=== PATIENT | male | born 1960 | race African-American/Black ===

== ENCOUNTER 2021-05-07 10:22 | Inpatient (IN) ==
[2021-05-07] MEDS ORDERED: DILTIAZEM 50 MG/10 ML VIAL IV STA (10:41)
[2021-05-07] MEDS: DILTIAZEM INJ 100 MG in SODIUM CHLORIDE 0.9% 100 ML IV SCH ×2 (11:15→21:05)
[2021-05-07 11:17] LABS: Basophils % 0.5 % (0.0-0.8); Eosinophils # 0.1 10*3/uL (0.0-0.87); Eosinophils % 1.2 % (0.00-10.9); Hematocrit 45.5 VOL% (42.0-52.0); Immature Granulocytes % 0.2 %; Immature Granulocytes Absolute 0.01 #; Lymphocytes # 1.5 10*3/uL (1.4-4.0); Lymphocytes % 35.7 % (21.2-54.2); Mean Corpuscular Volume 88.5 FL (87-102); Mean Platelet Volume 12.3 FL (9.6-12.0); Monocytes % 10.4 % (1.7-12.7); Platelet Count 209 T/CUMM (130-400); Red Blood Count 5.14 MC/CUMM (3.8-5.5); Red Cell Distribution Width 14.7 % (9.3-17.3); White Blood Count 4.1 T/CUMM (4-12)
[2021-05-07 11:41] LABS: Albumin 3.4 G/DL (3.4-5.0); Bilirubin,Total 0.8 MG/DL (0.20-1.00); Calcium 8.8 MG/DL (8.5-10.1); Osmolality,Calculated 273.1 MOS/KG (273-304); Potassium 4.2 MMOL/L (3.5-5.1); Thyroid Stimulating Hormone 2.33 uIU/ml (0.358-3.74); Total Protein 5.8 G/DL (6.4-8.2)
[2021-05-07] MEDS ORDERED: GLUCAGON 1 MG VIAL IM PRN (12:05)
[2021-05-07] MEDS ORDERED: DEXTROSE 50% 25 GM/50 ML SYRINGE IV PRN (12:05)
[2021-05-07] MEDS ORDERED: BISACODYL 5 MG TABLET PO PRN (12:06)
[2021-05-07] MEDS ORDERED: ONDANSETRON 4 MG/2 ML VIAL IV PRN (12:06)
[2021-05-07] MEDS ORDERED: guaiFENesin/DM ER 600-30 MG TABLET PO PRN (12:06)
[2021-05-07] MEDS ORDERED: ACETAMINOPHEN 325 MG TABLET PO PRN (12:06)
[2021-05-07] MEDS ORDERED: ALBUTEROL 2.5 MG/3 ML NEB RESP TX PRN (12:06)
[2021-05-07] MEDS ORDERED: SODIUM CHLORIDE 0.9% 1,000 ML IV ONE (12:26)
[2021-05-07] MEDS ORDERED: ENOXAPARIN 40 MG/0.4 ML SYRINGE SUBCUT SCH (13:00)
[2021-05-07] MEDS ORDERED: METOPROLOL TARTRATE 5 MG/5 ML VIAL IV ONE (13:57)
[2021-05-07] MEDS: SODIUM CHLORIDE 0.9% 1,000 ML IV SCH ×2 (14:08→22:05)
[2021-05-07] MEDS ORDERED: METOPROLOL TARTRATE 5 MG/5 ML VIAL IV STA (14:19)
[2021-05-07] MEDS: ENOXAPARIN 120 MG/0.8 ML SYRINGE SUBCUT SCH (14:33)
[2021-05-07] MEDS: POLYETHYLENE GLYCOL POWDER 17 GM PACK PO SCH (14:37)
[2021-05-07 18:20] LABS: Bacteria,Urine Occasional /HPF (Few); Bilirubin,Urine Negative (Negative); Blood, Urine Negative (Negative); Glucose,Urine (UA) Negative (Negative); Hyaline Casts,Urine 4 /LPF (0-3); Ketones,Urine Negative (Negative); Mucus,Urine Few /LPF (Occasional); Nitrite,Urine Negative (Negative); Protein,Urine 30 MG/DL; RBC,Urine 4 /HPF (0-4); Squamous Epithelial Cell,Urine Occasional /HPF (0-10); Urine Appearance CLEAR (Clear); Urine Color Amber (Yellow); Urine Specific Gravity 1.025 (1.001-1.035); Urine Urobilinogen < 2.0 EU/DL (0.2-1.0)
[2021-05-07] MEDS ORDERED: PNEUMOCOCCAL VACCINE (13 VALENT) 0.5 ML SYRINGE IM ONE (20:19)
[2021-05-07] MEDS ORDERED: INFLUENZA VIRUS VACCINE 0.5 ML SYRINGE IM ONE (20:19)
[2021-05-07] MEDS: PANTOPRAZOLE 40 MG TABLET PO SCH (20:28)
[2021-05-07] MEDS: carvediloL 3.125 MG TABLET PO SCH (20:28)
[2021-05-07] MEDS: ASCORBIC ACID 500 MG TABLET PO SCH (20:28)
[2021-05-08] MEDS: SODIUM CHLORIDE 0.9% 1,000 ML IV SCH (03:07)
[2021-05-08] MEDS: DILTIAZEM INJ 100 MG in SODIUM CHLORIDE 0.9% 100 ML IV SCH ×3 (04:37→19:24)
[2021-05-08 05:19] LABS: Basophils % 0.7 % (0.0-0.8); Eosinophils % 0.5 % (0.00-10.9); Hematocrit 43.9 VOL% (42.0-52.0); Hemoglobin 14.4 GM/DL (14.0-18.0); Immature Granulocytes % 0.7 %; Immature Granulocytes Absolute 0.03 #; Lymphocytes # 1.2 10*3/uL (1.4-4.0); Lymphocytes % 28.6 % (21.2-54.2); Mean Corpuscular HGB Conc 32.8 GM/DL (32-36); Mean Corpuscular Volume 90.7 FL (87-102); Mean Platelet Volume 12.4 FL (9.6-12.0); Monocytes % 9.4 % (1.7-12.7); Neutrophils % 60.1 % (38.7-73.9); Platelet Count 214 T/CUMM (130-400); Red Blood Count 4.84 MC/CUMM (3.8-5.5); Red Cell Distribution Width 15.3 % (9.3-17.3); White Blood Count 4.3 T/CUMM (4-12)
[2021-05-08 06:00] LABS: Calcium 8.1 MG/DL (8.5-10.1); Osmolality,Calculated 271.4 MOS/KG (273-304); Potassium 4.8 MMOL/L (3.5-5.1); Risk Ratio 4.57; VLDL Cholesterol 13.4 MG/DL
[2021-05-08] MEDS ORDERED: PANTOPRAZOLE 40 MG TABLET PO SCH (09:00)
[2021-05-08] MEDS: POLYETHYLENE GLYCOL POWDER 17 GM PACK PO SCH (09:35)
[2021-05-08] MEDS: PANTOPRAZOLE 40 MG TABLET PO SCH ×2 (09:36→21:22)
[2021-05-08] MEDS: carvediloL 3.125 MG TABLET PO SCH (09:36)
[2021-05-08] MEDS: ASCORBIC ACID 500 MG TABLET PO SCH ×2 (09:36→21:22)
[2021-05-08] MEDS ORDERED: ALUMINUM/MAGNES/SIMETH MAX STR 30 ML UDCUP PO PRN (09:42)
[2021-05-08] MEDS ORDERED: carvediloL 3.125 MG TABLET PO ONE (11:22)
[2021-05-08] MEDS: ENOXAPARIN 120 MG/0.8 ML SYRINGE SUBCUT SCH (14:23)
[2021-05-08] MEDS: carvediloL 6.25 MG TABLET PO SCH ×2 (17:10→23:20)
[2021-05-08] MEDS ORDERED: FUROSEMIDE 20 MG/2 ML VIAL IV ONE (18:08)
[2021-05-09] MEDS: carvediloL 6.25 MG TABLET PO SCH ×3 (05:05→17:13)
[2021-05-09] MEDS ORDERED: DIGOXIN 0.5 MG/2 ML AMP IV ONE ×3 (06:42→16:00)
[2021-05-09 07:36] LABS: Albumin 2.9 G/DL (3.4-5.0); Bilirubin,Total 0.7 MG/DL (0.20-1.00); Calcium 8.5 MG/DL (8.5-10.1); Osmolality,Calculated 271.2 MOS/KG (273-304); Potassium 4.6 MMOL/L (3.5-5.1); Total Protein 5.4 G/DL (6.4-8.2)
[2021-05-09] MEDS: POLYETHYLENE GLYCOL POWDER 17 GM PACK PO SCH (09:20)
[2021-05-09] MEDS: PANTOPRAZOLE 40 MG TABLET PO SCH ×2 (09:20→20:24)
[2021-05-09] MEDS: ASCORBIC ACID 500 MG TABLET PO SCH ×2 (09:21→20:24)
[2021-05-09] MEDS: DILTIAZEM INJ 100 MG in SODIUM CHLORIDE 0.9% 100 ML IV SCH (10:10)
[2021-05-09] MEDS: FUROSEMIDE 40 MG/4 ML VIAL IV SCH (16:54)
[2021-05-09] MEDS: APIXABAN 5 MG TABLET PO SCH (20:24)
[2021-05-10] MEDS: carvediloL 6.25 MG TABLET PO SCH ×2 (00:16→05:36)
[2021-05-10 05:30] LABS: Basophils % 0.9 % (0.0-0.8); Eosinophils # 0.2 10*3/uL (0.0-0.87); Eosinophils % 3.2 % (0.00-10.9); Hematocrit 43.9 VOL% (42.0-52.0); Hemoglobin 14.4 GM/DL (14.0-18.0); Immature Granulocytes % 0.4 %; Immature Granulocytes Absolute 0.02 #; Lymphocytes # 1.2 10*3/uL (1.4-4.0); Lymphocytes % 26.3 % (21.2-54.2); Mean Corpuscular HGB Conc 32.8 GM/DL (32-36); Mean Corpuscular Volume 90.7 FL (87-102); Mean Platelet Volume 12.1 FL (9.6-12.0); Neutrophils % 57.2 % (38.7-73.9); Platelet Count 196 T/CUMM (130-400); Red Blood Count 4.84 MC/CUMM (3.8-5.5); Red Cell Distribution Width 14.8 % (9.3-17.3); White Blood Count 4.7 T/CUMM (4-12)
[2021-05-10 05:53] LABS: Calcium 8.4 MG/DL (8.5-10.1); Osmolality,Calculated 275.8 MOS/KG (273-304); Potassium 4.4 MMOL/L (3.5-5.1)
[2021-05-10] MEDS: FUROSEMIDE 40 MG/4 ML VIAL IV SCH (09:55)
[2021-05-10] MEDS: POLYETHYLENE GLYCOL POWDER 17 GM PACK PO SCH (09:55)
[2021-05-10] MEDS: ASCORBIC ACID 500 MG TABLET PO SCH ×2 (09:56→21:06)
[2021-05-10] MEDS: PANTOPRAZOLE 40 MG TABLET PO SCH ×2 (09:56→21:07)
[2021-05-10] MEDS: APIXABAN 5 MG TABLET PO SCH ×2 (09:56→21:07)
[2021-05-10] MEDS ORDERED: carvediloL 6.25 MG TABLET PO ONE (12:00)
[2021-05-10] MEDS: DIGOXIN 0.125 MG TABLET PO SCH (13:50)
[2021-05-10] MEDS: DILTIAZEM INJ 100 MG in SODIUM CHLORIDE 0.9% 100 ML IV SCH (13:51)
[2021-05-10] MEDS: carvediloL 12.5 MG TABLET PO SCH ×3 (13:53→21:07)
[2021-05-10] MEDS ORDERED: carvediloL 12.5 MG TABLET PO SCH (21:00)
[2021-05-10] MEDS ORDERED: FUROSEMIDE 40 MG/4 ML VIAL IV ONE (21:06)
[2021-05-11] MEDS ORDERED: METOPROLOL TARTRATE 50 MG TABLET PO SCH (09:00)
[2021-05-11] MEDS: ASCORBIC ACID 500 MG TABLET PO SCH ×2 (10:12→21:26)
[2021-05-11] MEDS: APIXABAN 5 MG TABLET PO SCH ×2 (10:13→21:26)
[2021-05-11] MEDS: PANTOPRAZOLE 40 MG TABLET PO SCH ×2 (10:13→21:26)
[2021-05-11] MEDS: POLYETHYLENE GLYCOL POWDER 17 GM PACK PO SCH (10:13)
[2021-05-11] MEDS: FUROSEMIDE 40 MG/4 ML VIAL IV SCH (10:13)
[2021-05-11 10:23] LABS: Calcium 8.6 MG/DL (8.5-10.1); Osmolality,Calculated 277.7 MOS/KG (273-304); Potassium 4.4 MMOL/L (3.5-5.1)
[2021-05-11] MEDS ORDERED: BISOPROLOL 5 MG TABLET PO ONE (10:24)
[2021-05-11] MEDS: DILTIAZEM INJ 100 MG in SODIUM CHLORIDE 0.9% 100 ML IV SCH (11:51)
[2021-05-11] MEDS: DIGOXIN 0.125 MG TABLET PO SCH (12:44)
[2021-05-11] MEDS ORDERED: BISOPROLOL 5 MG TABLET PO SCH (21:00)
[2021-05-12 06:16] LABS: Calcium 8.7 MG/DL (8.5-10.1); Osmolality,Calculated 275.8 MOS/KG (273-304); Potassium 4.1 MMOL/L (3.5-5.1)
[2021-05-12] MEDS: POLYETHYLENE GLYCOL POWDER 17 GM PACK PO SCH (09:19)
[2021-05-12] MEDS: BISOPROLOL 5 MG TABLET PO SCH ×2 (09:21→20:47)
[2021-05-12] MEDS: PANTOPRAZOLE 40 MG TABLET PO SCH ×2 (09:21→20:47)
[2021-05-12] MEDS: APIXABAN 5 MG TABLET PO SCH ×2 (09:21→20:47)
[2021-05-12] MEDS: ASCORBIC ACID 500 MG TABLET PO SCH ×2 (09:21→20:46)
[2021-05-12] MEDS: FUROSEMIDE 40 MG/4 ML VIAL IV SCH (09:30)
[2021-05-12] MEDS: DILTIAZEM INJ 100 MG in SODIUM CHLORIDE 0.9% 100 ML IV SCH (12:56)
[2021-05-12] MEDS ORDERED: DIGOXIN 0.25 MG TABLET PO SCH (13:00)
[2021-05-13 06:41] LABS: Calcium 9.2 MG/DL (8.5-10.1); Osmolality,Calculated 277.7 MOS/KG (273-304); Potassium 4.1 MMOL/L (3.5-5.1)
[2021-05-13] MEDS: FUROSEMIDE 40 MG/4 ML VIAL IV SCH (08:29)
[2021-05-13] MEDS: POLYETHYLENE GLYCOL POWDER 17 GM PACK PO SCH (09:50)
[2021-05-13] MEDS: PANTOPRAZOLE 40 MG TABLET PO SCH (09:52)
[2021-05-13] MEDS: ASCORBIC ACID 500 MG TABLET PO SCH (09:52)
[2021-05-13] MEDS: BISOPROLOL 5 MG TABLET PO SCH (09:52)
[2021-05-13] MEDS: APIXABAN 5 MG TABLET PO SCH (09:53)
[2021-05-13] MEDS ORDERED: SACUBITRIL/VALSARTAN 49-51 MG TABLET PO SCH (10:30)
[2021-05-13] MEDS ORDERED: SPIRONOLACTONE 25 MG TABLET PO SCH (10:30)
[2021-05-13] MEDS ORDERED: lisinopriL 2.5 MG TABLET PO SCH (10:30)
== END 2021-05-13 14:15 | disposition home or self-care (01) | DRG 309 ==
LOC: N.ED 10:22 → N.EDINP 12:05 → SUATTDRO 12:05 → N.TELEN 19:19
PROVIDERS: ADMIT Internal Medicine; ATTEND Emergency Medicine